=== PATIENT | male | born 2000 | race Caucasian/White ===

== ENCOUNTER 2022-12-12 04:56 | Emergency (ER) | payer MEDICAID ==
[~2022-12-12] VITALS: Ht 162.6 cm; Wt 75.7 kg
[2022-12-12 05:00] VITALS: BP 127/78
--- NOTE | 2022-12-12 05:00 | NUR ---
TO BED AMBULATORY
--- NOTE | 2022-12-12 05:40 | NUR ---
DR. MARTINEZ AT BEDSIDE
--- NOTE | 2022-12-12 05:40 | NUR ---
RESTING ON BED, A/OX4, NOT IN DISTRESS, CHEST RISING AND FALL SYMMETRICAL, ON MONITOR
--- NOTE | 2022-12-12 05:50 | NUR ---
XRAY AT BEDSIDE
--- NOTE | 2022-12-12 06:00 | NUR ---
SIGNED CONSENT FOR TDAP VACCINE ADMINISTRATION ATTACHED TO CHART
--- NOTE | 2022-12-12 06:00 | NUR ---
WOUND DRESSING DONE
[2022-12-12] MEDS ORDERED: BACITRACIN OINT 500 UNITS/GM PKT TP ONE (06:40)
[2022-12-12] MEDS ORDERED: LIDOCAINE 1% 500 MG/ 50 ML VIAL INJ ONE (06:40)
[2022-12-12] MEDS ORDERED: LIDOCAINE MPF 1% 0 ML ONE (06:48)
[2022-12-12] MEDS ORDERED: LIDOCAINE MPF 1% 5 ML ONE ×2 (06:55→07:44)
--- NOTE | 2022-12-12 07:17 | NUR ---
REPORT GIVEN TO AM MATT WILLETT RN. VERBALIZED UNDERSTANDING. NO FURTHER QUESTION ASKED
--- NOTE | 2022-12-12 07:30 | NUR ---
Received report from LAILA Floyd. Pt is a 22 year old male, full code. AAOx 4, with even and steady gait. Pts lung sounds clear bl. Pt came in with multiple laceration on abd, lft arm, and chest. Pt states he is not in pain at this time. Pts Hr upon arrival 118, pts hr has gone down to 100. Pt denies any fever,chest pain, or cough at this time. Pts temp 99.3. Pts HOB elevated; Bedrails up x2; bed down. Pts family at bedside. Suture kit set up at bed side. Pt waiting for provider treatment.
--- NOTE | 2022-12-12 07:37 | NUR ---
pt ambulated to the restroom.
--- NOTE | 2022-12-12 07:40 | NUR ---
. At bedside with pt. is applying stiches to pts lacerations.
[2022-12-12] MEDS ORDERED: LIDOCAINE 2% 100 MG/5 ML SYR IVP ONE (07:41)
--- NOTE | 2022-12-12 08:15 | NUR ---
WOUNDS TO LEFT POSTERIOR BICEP DRESSED WITH NON ADHERENT AND BANDAGED WITH ROLL GAUZE, WOUND TO LEFT ANTERIOR CHEST STERI STRIPS APPLIED, WOUND TO LEFT FLANK ANTERIOR, DRESSED WITH NON ADHERENT.
--- NOTE | 2022-12-12 08:20 | NUR ---
Pt has been sutured by the provider. Pt does not have any pressence of pain. No adverse reations to treatment. Pt vitals with in normal limits.
[2022-12-12] MEDS ORDERED: BACO TP (08:21)
--- NOTE | 2022-12-12 08:30 | NUR ---
Patient discharged with v/s stable. Written and verbal after care instructions given and explained. Patient verbalized understanding. Ambulatory with steady gait. All questions addressed prior to discharge. Advised to follow up with PMD.
[2022-12-12 08:35] VITALS: BP 123/67
== END 2022-12-12 08:45 | disposition home or self-care (01) ==
LOC: MED 04:56
DX: S41.112A Laceration without foreign body of left upper arm, initial encounter (principal); S31.114A Laceration without foreign body of abdominal wall, left lower quadrant without penetration into peritoneal cavity, initial encounter; S21.112A Laceration without foreign body of left front wall of thorax without penetration into thoracic cavity, initial encounter; Y04.0XXA Assault by unarmed brawl or fight, initial encounter; Y93.89 Activity, other specified; Y92.89 Other specified places as the place of occurrence of the external cause; Y99.8 Other external cause status
CPT/HCPCS: 12002; 13121; 73060; 90471; 90715; 99285; J2001; Q0092

== ENCOUNTER 2022-12-19 11:58 | Emergency (ER) | payer MEDICAID ==
[~2022-12-19] VITALS: Ht 154.9 cm; Wt 72.6 kg
[~2022-12-19 11:58] MED LIST: BACO TP
[2022-12-19 12:01] VITALS: BP 123/75; PULSE 69; RESP 20; TEMP 97; O2SAT 99
== END 2022-12-19 12:25 | disposition home or self-care (01) ==
LOC: MED 11:58
DX: S41.112D Laceration without foreign body of left upper arm, subsequent encounter (principal); S31.119D Laceration without foreign body of abdominal wall, unspecified quadrant without penetration into peritoneal cavity, subsequent encounter; S21.119D Laceration without foreign body of unspecified front wall of thorax without penetration into thoracic cavity, subsequent encounter; Z79.899 Other long term (current) drug therapy; X58.XXXD Exposure to other specified factors, subsequent encounter
CPT/HCPCS: 99281